=== PATIENT | male | born 1935 | race Caucasian/White ===

== ENCOUNTER → 2021-10-31 16:27 | Outpatient (CLI) | payer MEDICARE, SELFPAY ==
--- NOTE | 2021-10-31 | DI.RAD.S_ITS ---
PROCEDURE: XR HIP W PEL IF DONE LT 2V INDICATIONS: Left Hip Pain TECHNIQUE: 3 views of the hip were acquired. COMPARISON: None. FINDINGS: Bones: Total left hip prosthesis noted in place. No evidence of prosthetic loosening hardware failure. Advanced right hip joint space narrowing and subchondral sclerosis present. Soft tissues: No suspicious soft tissue calcifications or masses. IMPRESSION: Total left hip arthroplasty in place. Advanced right hip osteoarthritis Approved by: Wing Jesus M.D. on 10/31/2021 at 19:11
== END ==
PROVIDERS: PCP Internal Medicine; Referring Provider Internal Medicine; Visit Provider Internal Medicine
DX: M16.11 Unilateral primary osteoarthritis, right hip (principal); M25.552 Pain in left hip; Z96.642 Presence of left artificial hip joint
CPT/HCPCS: 73502

== ENCOUNTER → 2023-10-02 14:41 | Outpatient (CLI) | payer MEDICARE, SELFPAY ==
--- NOTE | 2023-10-02 14:44 | DI.CT.S_ITS ---
PROCEDURE: CT UE LT WO CON INDICATIONS: PAIN IN LEFT SHOULDER TECHNIQUE: Noncontrast 0.75 mm thick sections acquired from the acromioclavicular joint to the inferior scapula, with coronal and sagittal reformatting. COMPARISON: [facility] [place], CR, XR SHOULDER 2+ VIEWS LEFT, 06/26/2023, 9:46. FINDINGS: Image quality: Excellent. Bones: Left shoulder alignment is anatomic. No acute fracture or dislocation. No suspicious bony lesions. Moderate to severe acromioclavicular joint osteoarthritic changes are seen with joint space narrowing, subchondral sclerosis and downward osteophyte formation depressing the musculotendinous junction of supraspinatus. Severe glenohumeral joint osteoarthritic changes are seen with near complete loss of joint space, extensive subchondral sclerosis and subcortical cystic changes as well as prominent inferior marginal osteophyte formation. No gross abnormality is seen in included portion of left ribs. 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 No acute vertebral body compression fracture. Soft tissues: There is no full-thickness rotator cuff tendon rupture. No significant rotator cuff muscle atrophy is seen on sagittal images. Small joint effusion and subacromial subdeltoid bursal fluid is noted, no gross loose bodies. No left axillary lymphadenopathy is seen. Pacemaker is noted in left anterior chest wall. No soft tissue mass or abnormal soft tissue calcifications. The included portion of left lung field is clear. IMPRESSION: 1. 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 No shoulder fracture or dislocation. No suspicious bony lesions. 2. No full-thickness rotator cuff tendon rupture. No significant rotator cuff muscle atrophy. No abnormal soft tissue calcifications or discrete soft tissue mass. 3. Small joint effusion and subacromial subdeltoid bursal fluid, no definite intra-articular loose bodies. Dictated by: Wang Holland M.D. on 10/02/2023 at 17:38 Approved by: Wang Holland M.D. on 10/02/2023 at 17:41
== END ==
PROVIDERS: PCP Internal Medicine; Referring Provider Physician Assistant; Visit Provider Physician Assistant
DX: M19.012 Primary osteoarthritis, left shoulder (principal); M25.412 Effusion, left shoulder; M51.34 Other intervertebral disc degeneration, thoracic region; M25.512 Pain in left shoulder
CPT/HCPCS: 73200

== ENCOUNTER 2023-10-17 06:04 | Day surgery (SDC) | payer MEDICARE, SELFPAY ==
[2023-10-03 08:33] VITALS: BMI 25.3
--- NOTE | 2023-10-17 06:00 | DI.RAD.S_ITS ---
PROCEDURE: XR SHOULDER LT 1V INDICATIONS: left total shoulder TECHNIQUE: 1 views of the shoulder were acquired. COMPARISON: None. FINDINGS: Status post left reverse total shoulder arthroplasty, in near anatomic alignment on this frontal view. Soft tissue air about the left shoulder, postprocedural. Left subclavian pacemaker, left atrial appendage clip. IMPRESSION: Limited single view of the left shoulder arthroplasty. Dictated by: Yodit Leavitt M.D. on 10/17/2023 at 18:13 Approved by: Yodit Leavitt M.D. on 10/17/2023 at 18:16
[2023-10-17 06:52] VITALS: BMI 25.3
[2023-10-17] MEDS: ACETAMINOPHEN 325 MG TABLET 975 MG PO (07:08)
[2023-10-17] MEDS: LACTATED RINGERS 1,000 ML 42 ML IV ×2 (07:09→08:58)
[2023-10-17 07:14] VITALS: BP 130/66; PULSE 70; RESP 16; TEMP 36.2; O2SAT 100
--- NOTE | 2023-10-17 07:20 | SUR.OPER ---
Beach chair on padded OR bed. Head on gel donut secured with tape over gauze. Non-operative arm secured <90 degrees abduction on padded arm board. Pillow under knees. Safety belt at thigh. Cloth tape over blanket over lower legs.
[2023-10-17] MEDS: CEFAZOLIN 2 GM/100 ML PREMIX 100 ML IV (07:45)
--- NOTE | 2023-10-17 07:53 | PM.PREOP ---
Pre-operative Note Interval Note History & Physical reviewed/Exam performed by Physician: Yes Changes to H&P: No
[2023-10-17] MEDS: TRANEXAMIC ACID 1,000 MG VIAL 1000 MG INJ (07:55)
[2023-10-17] MEDS: BUPIVACAINE 0.25% (PF) 30 ML, EPINEPHrine 0.15 MG INJ (08:27)
--- NOTE | 2023-10-17 09:24 | P.OP_ITS ---
Operative Date/Time/Diagnoses Date of procedure: 10/17/23 Time of procedure: 09:25 Pre-op diagnosis: Left glenohumeral arthritis Post-op diagnosis: same Procedure & Clinicians Procedure: Left reverse total shoulder arthroplasty Same procedure as scheduled: Yes Indications: Indications: This is a 88 year old male who has left glenohumeral arthritis. Symptoms have been present for years, insidious onset. Patient has failed a reasonable attempt at conservative therapy. After extensive discussion in clinic, they wished to go forward with surgery. Risks and benefits were described including the risk of infection, bleeding, damage to internal structures including nerves. We also discussed the risk of failure of surgery and the need for revision surgery as well as the risk of anesthesia. The patient expressed understanding with these risks and wished to go forward with surgery. Surgeon: Alex Stoner Whipper Beater: Jania Helm Anesthesia Type: General Operative Notes Findings: Findings: Osteoarthritis of the glenoid and humeral head with intact rotator cuff as noted on preoperative imaging and under direct visualization Closure Type: primary Specimen(s): none sent Prosthetic devices, grafts, tissues, transplants, or devices: Tornier implants Base plate: 29 mm, +3 mm offset Glenosphere: 39 mm Stem: Perform 3+ Poly: +0 concentric Estimated Blood Loss (mL): 100 Blood products transfused: none Procedure in detail: Patient was seen in the preoperative holding unit. The correct left shoulder was identified and marked with my initials. Again we discussed the risks and benefits of surgery and they wished to go forward with surgery. The patient was brought back to the operating room and placed supine on the operating table. Smooth endotracheal intubation was performed by anesthesia. All prominences were padded and they were placed into the beach chair position. Intravenous antibiotics were given. The left shoulder was then prepped with the standard sterile preparation and draping. A time-out was then performed in my initials were again identified on the correct shoulder. 1 g of IV tranexamic acid was given. A standard deltopectoral incision was made. Skin flaps were made. The cephalic vein was identified and retracted laterally. This was protected throughout the remainder of the case. Sharp dissection was made along the deltoid, subacromial and subcoracoid space to release adhesions. The conjoined tendon was identified and the axillary nerve was palpated and continuous using the tug test. It was protected throughout the remainder of the case. A brown retractor was placed underneath the deltoid muscle and a darach retractor underneath the conjoint tendon. The subscapularis muscle was ntoed to be intact. The anterior circumflex artery and associated veins on the lower border of the subscapularis were identified and tied off using 0-Vicryl. The biceps tendon was identified in the bicipital groove. This was released from its sheath, and taken from its origin on the glenoid and tied into the pectoralis tendon for a solid tenodesis. We then began a subscapularis peel. The subscapularis was tagged with an Ethibond suture. A 360 degree circumferential release of the subscapularis was performed with protection of the axillary nerve. The coracohumeral ligament was released at the base of the coracoid. The shoulder was then dislocated. Osteophytes were removed using combination of rongeur and osteotome. The rotator cuff was noted to be intact. An intramedullary guide was used set at version of 20?. Using an oscillating saw a conservative humeral head cut was made. Impaction reamers were reamed up to a size 3 stem with a built-in angle 135?. A neck protector was placed. Attention was then turned to the glenoid. After retracting the humeral head posteriorly a circumferential release was performed of the capsule with protection of the axillary nerve. The labrum was the] followed by Aquacel dressing. Patient was awoken from anesthesia and brought back to the postoperative recovery unit without issue. They were placed into a sling. Assisting participation: This operation could not have been safely performed (without compromising the technical results or length of the procedure) without the assistance of a skilled nursing surgical services director. The nursing surgical services director was medically necessary for proper positioning, retraction and manipulation of instruments, proper exposure, graft prep, and manipulation of tissue. Complications: none Post-operative Condition: stable Disposition: PACU Plan for aftercare: Postoperative instructions: Sling to remain on for 6 weeks. No external rotation past neutral for 6 weeks. Okay for the sling to come off for shower. Okay to shower over the Aquacel dressing. If any water gets underneath the dressing, remove the dressing. First postoperative visit in 2 weeks.
[2023-10-17 09:38] VITALS: BP 100/52; PULSE 66; RESP 18; TEMP 36.9; O2SAT 96
[2023-10-17 09:44] VITALS: BP 104/53; PULSE 86; RESP 18; TEMP 36.8; O2SAT 96
[2023-10-17 09:50] VITALS: BP 113/60; PULSE 67; RESP 13; TEMP 36.7; O2SAT 96
[2023-10-17 09:55] VITALS: BP 114/61; PULSE 69; RESP 15; TEMP 36.7; O2SAT 97
[2023-10-17 10:35] VITALS: BP 132/71; PULSE 68; RESP 18; TEMP 36.1; O2SAT 95
== END 2023-10-17 11:01 | disposition home or self-care (01) ==
LOC: OR 06:05 → AC 06:06
PROVIDERS: PCP Physician Assistant; Referring Provider Orthopaedic Surgery; Visit Provider Orthopaedic Surgery
PROC: (CPT 23472; principal; 2023-10-17 07:45)
DX: M19.012 Primary osteoarthritis, left shoulder (principal); G89.18 Other acute postprocedural pain; M25.712 Osteophyte, left shoulder
CPT/HCPCS: 23472; 64415; 73020; 85610; C1776; J0171; J0330; J0690; J1885; J2405; J2704; J3010

== ENCOUNTER 2024-10-12 10:11 | Emergency (ER) | payer MEDICARE, SELFPAY ==
[2024-10-12 10:20] VITALS: BP 132/82; PULSE 95; RESP 16; TEMP 36.8; O2SAT 99; BMI 25.4
--- NOTE | 2024-10-12 11:57 | ED_ITS ---
<Statement entered by Michael uTrcios, DO - 10/12/24 18:11> Co-sign statement: I was available for consultation during this patient's emergency department visit. This chart is being signed by myself for administrative purposes only. I do not have direct contact with this patient during this visit. They were seen independently by the APC. HPI - Extremity Injury (Lower) General Chief Complaint: Extremity Problem,Nontraumatic Stated Complaint: RT leg cramping (4days ago); painful getting worse Time Seen by Provider: 10/12/24 10:17 Source: patient Mode of arrival: Ambulatory History of Present Illness HPI Narrative: 89-year-old male with past medical history atrial fibrillation, on warfarin presents to the ED with 5 days of right hamstring pain. Patient states that his symptoms started when he felt a sharp BETTIE's horse 5 days ago, which started just above his right knee. Patient now complains of residual pain between the right buttock and the right knee. Patient also endorses bruising in that area. No other trauma. No numbness, tingling, weakness. Patient is able to bear weight and walk. No chest pain, shortness of breath. Related Data Home Medications ?Medication ?Instructions ?Recorded ?Confirmed dofetilide 250 mcg capsule 250 mcg PO Q12H 10/03/23 montelukast 10 mg tablet 10 mg PO BEDTIME 10/03/23 rosuvastatin 10 mg tablet 10 mg PO BEDTIME 10/03/23 tamsulosin 0.4 mg capsule 0.8 mg PO BEDTIME 10/03/23 0 10/17/23 warfarin 5 mg tablet 7.5 mg PO SEEINSTR 10/03/23 10/17/23 Previous Rx's ?Medication ?Instructions ?Recorded acetaminophen 500 mg tablet 1,000 mg (2 x 500 mg) PO Q 8H PRN 10/17/23 Pain #90 tabs oxycodone 5 mg tablet 5 mg PO Q6H PRN pain #30 tab s 10/17/23 Allergies Allergy/AdvReac Type Severity Reaction Status Date / Time naproxen (From Aleve) Allergy Severe Throat Verified 10/17/23 06:46 swelling, itching Review of Systems Constitutional Constitutional: Denies chills, Denies fatigue, Denies fever(s), Denies frequent falls, Denies lethargy and Denies weakness Eyes Eyes: Denies change in vision, Denies eye discharge, Denies irritation and Denies loss of vision ENT Ears, Nose, Mouth, and Throat: Denies change in voice, Denies dizziness, Denies neck pain, Denies sore throat and Denies throat swelling Cardiovascular Cardiovascular: Denies chest pain, Denies irregular heart rhythm, Denies lightheadedness, Denies palpitations, Denies dyspnea, Denies dyspnea on exertion and Denies orthopnea Respiratory Respiratory: Denies cough, Denies dyspnea, Denies dyspnea on exertion and Denies wheezing Gastrointestinal Gastrointestinal: Denies abdominal pain, Denies change in bowel habits, Denies diarrhea, Denies nausea and Denies vomiting Musculoskeletal Musculoskeletal: Denies neck pain and Denies numbness Comments: Right hamstring pain Integumentary/Breasts Skin/Breast: Denies pruritus, Denies erythema, Denies rash and Denies wounds Neurologic Neurologic: Denies behavioral changes, Denies confusion, Denies dizziness, Denies frequent falls, Denies loss of vision, Denies numbness and Denies weakness Psychiatric Psychiatric: Denies anxiety, Denies behavioral changes, Denies confusion, Denies depression, Denies homicidal ideation and Denies suicidal ideation Endocrine Endocrine: Denies fatigue, Denies flushing and Denies palpitations Hematologic/Lymphatic Hematologic/Lymphatic: Denies easy bruising Allergic/Immunologic Allergic/Immunologic: Denies urticaria, Denies throat swelling and Denies wheezing Patient History Medical History History of COVID-19 (~2021) Melanoma (~2019) Pre-diabetes Kidney stones Arthritis History of cardioversion HLD (hyperlipidemia) HTN (hypertension) Afib [place] on CPAP Surgical History Hx of Achilles tendon repair History of back surgery (1988) History of total replacement of right shoulder joint (2015) History of total left hip replacement (2015) History of tonsillectomy and adenoidectomy Hx of lithotripsy H/O vasectomy History of cardiac radiofrequency ablation History of permanent cardiac pacemaker placement Social History household members: spouse Smoking Status: Former smoker alcohol intake: current Smoking Status: Former smoker alcohol intake frequency: holidays/special occasions only Exam Narrative Exam Narrative: Const General:?cooperative, healthy appearing and comfortable [facility] Head:?normal to inspection Ears:?hearing grossly normal bilaterally Nose:?external nose normal Face and sinus:?normal facial exam and sinuses nontender Mouth:?oral mucosae normal Throat:?posterior oropharynx normal Eyes General:?appearance normal, both eyes and all related structures Neck Neck:?normal visual inspection and no lymphadenopathy noted Resp Effort & Inspection:?normal respiratory effort Auscultation:?clear to auscultation bilaterally Cardio Rate:?regular rate Rhythm:?regular rhythm Musculoskeletal Mild tenderness to palpation in the right hamstring. There is some dependent bruising from the musculoskeletal sprain/strain. Full range of motion. Strength and sensation intact. Neurovascularly intact. Gait normal. Neuro General:?patient alert, patient awake and patient oriented x3 Initial Vital Signs Initial Vital Signs: Vital Signs Temperature 98.2 F 10/12/24 10:20 Pulse Rate 95 H 10/12/24 10:20 Respiratory Rate 16 10/12/24 10:20 Blood Pressure 132/82 10/12/24 10:20 Pulse Oximetry 99 10/12/24 10:20 Oxygen Delivery Method Room Air 10/12/24 10:20 Course Orders Ordered: ED Orders 10/12/24 12:02 CBC Auto Diff [Complete Blood Count AUTO DIFF] Stat CMP [Comprehensive Metabolic Panel] Stat Magnesium Stat PT [Prothrombin Time INR] Stat PTT [PTT Partial Thromboplastin Anival] Stat Phosphorous Stat Vital Signs Vital signs: Vital Signs - 8 hr 10/12/24 10:20 10/12/24 13:27 Temperature 98.2 F 98 F Pulse Rate 95 H 85 Respiratory Rate 16 18 Blood Pressure 132/82 163/74 H Pulse Oximetry 99 99 Oxygen Delivery Method Room Air Room Air MDM - Extremity Injury (Lower) Lab Data 10/12/24 12:02 10/12/24 12:02 Labs: Lab Results 10/12/24 Range/Units 12:02 WBC 9.3 (4.5-11.0) X10^3/uL RBC 4.07 L (4.5-5.9) X10^6/uL Hgb 12.9 L (13.5-17.5) g/dL Hct 38.5 L (41-53) % MCV 94.6 (80-100) fL MCH 31.8 (26-34) PG MCHC 33.6 (30-36) % RDW 14.5 (11.6-14.8) % Plt Count 256 (150-400) X10^3/uL Neut % (Auto) 73.4 (50-75) % Lymph % (Auto) 14.4 L (25-40) % [place] % (Auto) 9.3 (3-14) % Eos % (Auto) 2.0 (2-4) % Baso % (Auto) 0.9 (0-2) % Neut # (Auto) 6800 (1937-9728) /uL Lymph # (Auto) 1300 (6635-0741) /uL [place] # (Auto) 900 (0-900) /uL Eos # (Auto) 200 (0-450) /uL Baso # (Auto) 100 (0-100) /uL PT 56.0 H (9.4-12.5) SECONDS INR 5.2 H* (0.9-1.3) APTT 50 H (25.1-36.5) SECONDS Sodium 138 (137-145) mmol/L Potassium 4.4 (3.4-5.1) mmol/L Chloride 103 (98-107) mmol/L Carbon Dioxide 29 (22-32) mmol/L BUN 21 H (9-20) mg/dL Creatinine 0.80 (0.66-1.25) mg/dL Estimated GFR > 60 (>60) mL/min BUN/Creatinine Ratio 26.3 H (6-22) Glucose 100 H (70-99) mg/dL Calcium 9.6 (8.4-10.2) mg/dL Phosphorus 3.4 (2.3-3.7) mg/dL Magnesium 2.2 (1.6-2.3) mg/dL Total Bilirubin 1.1 (0.2-1.3) mg/dL AST 31 (17-59) IU/L ALT 38 (<50) IU/L Alkaline Phosphatase 75 (38-126) U/L Total Protein 7.1 (6.3-8.2) g/dL Albumin 4.2 (3.5-5.0) g/dL Globulin 2.9 (1.7-4.1) g/dL Albumin/Globulin Ratio 1.4 (1.0-2.8) MDM Narrative Medical decision making narrative: 89-year-old male with past medical history atrial fibrillation, on warfarin presents to the ED with 5 days of right hamstring pain. Physical exam is most consistent with a musculoskeletal sprain/strain of the right hamstring. Recommend supportive care with Tylenol, mild stretching, rest. Labs were obtained to rule out electrolyte derangements, check INR. INR elevated to 5.2, which patient states is unusually high for him. Per patient, his INR usually stays between 2 and 3. Patient is in the process of establishing a new PCP, has an appointment that is scheduled in a few weeks. Recommend patient hold warfarin for the next 2-3 days, reach out to his PCP for a recheck prior to restarting. Recommend patient return to the ED if he is unable to see his PCP in the next 3 days. ED return precautions discussed with patient. Patient verbalized understanding. Medical records reviewed: Yes Discharge Plan Departure Patient Disposition: Home Clinical Impression: Supratherapeutic INR Hamstring strain Qualifiers: Encounter type: initial encounter Laterality: right Qualified Code(s): S76.311A - Strain of muscle, fascia and tendon of the posterior muscle group at thigh level, right thigh, initial encounter Instructions: DI for Hamstring Strain Activity Restrictions/Additional Instructions: You were evaluated in the emergency department for a hamstring injury. It appears that you have a musculoskeletal sprain/strain of the hamstring. Your symptoms should start improving over the next several days. You may take Tylenol for pain. Your INR was elevated to 5.2 today. It is advised that you stop warfarin for the next 2-3 days, get your INR rechecked. It is important that you follow-up with your primary care doctor as soon as possible further evaluation. Return to the ED if you have worsening symptoms. Prescriptions: No Action warfarin 5 mg Tablet 7.5 mg PO SEEINSTR Patient Comments: 7.5mg x 6 days, 5mg on dofetilide 250 mcg Capsule 250 mcg PO Q12H tamsulosin 0.4 mg Capsule 0.8 mg PO BEDTIME montelukast 10 mg Tablet 10 mg PO BEDTIME rosuvastatin 10 mg Tablet 10 mg PO BEDTIME oxycodone 5 mg tablet 5 mg PO Q6H PRN (Reason: pain) Qty: 30 0RF acetaminophen 500 mg Tablet 1,000 mg PO Q8H PRN (Reason: Pain) Qty: 90 0RF Referrals: Sari Russell PA-C [Primary Care Provider, Medical] Stand Alone Forms: Patient Portal/API
[2024-10-12 12:10] LABS: Add Manual Diff / Slide Review NO; Hematocrit 38.5 % (41-53); Hemoglobin 12.9 g/dL (13.5-17.5); Lymphocytes Absolute Auto 1300 /uL (1100-4500); Mean Corpuscular HGB Conc 33.6 % (30-36); Mean Corpuscular Hemoglobin 31.8 PG (26-34); Mean Corpuscular Volume 94.6 fL (80-100); Platelet Count 256 X10^3/uL (150-400)
[2024-10-12 12:19] LABS: Prothrombin Time 56.0 SECONDS (9.4-12.5)
[2024-10-12 12:20] LABS: INR 5.2 (0.9-1.3)
[2024-10-12 12:21] LABS: PTT Partial Thromboplastin Tim 50 SECONDS (25.1-36.5)
[2024-10-12 12:25] LABS: Alanine Aminotransferase 38 IU/L (<50); Albumin 4.2 g/dL (3.5-5.0); Albumin Globulin Ratio 1.4 (1.0-2.8); Alkaline Phosphatase 75 U/L (38-126); Blood Urea Nitrogen 21 mg/dL (9-20); Calcium 9.6 mg/dL (8.4-10.2); Carbon Dioxide 29 mmol/L (22-32); Chloride 103 mmol/L (98-107); Estimated Glomerular Filt Rate > 60 mL/min (>60); Globulin 2.9 g/dL (1.7-4.1); Glucose 100 mg/dL (70-99); HEMOLYSIS < 15 (0-50); Magnesium 2.2 mg/dL (1.6-2.3); Phosphorous 3.4 mg/dL (2.3-3.7); Potassium 4.4 mmol/L (3.4-5.1); Sodium 138 mmol/L (137-145); Total Protein 7.1 g/dL (6.3-8.2)
[2024-10-12 13:27] VITALS: BP 163/74; PULSE 85; RESP 18; TEMP 36.6; O2SAT 99
== END 2024-10-12 13:28 | disposition home or self-care (01) ==
PROVIDERS: Emergency Provider Student in an Organized Health Care Education/Training Program; PCP Physician Assistant
DX: S76.311A Strain of muscle, fascia and tendon of the posterior muscle group at thigh level, right thigh, initial encounter (principal); R79.1 Abnormal coagulation profile
CPT/HCPCS: 36415; 80053; 83735; 84100; 85025; 85610; 85730; 99283